=== PATIENT | male | born 2000 | race Two or more races ===

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

== ENCOUNTER 2022-03-15 21:02 | Emergency (ER) | payer MEDICAID ==
[~2022-03-15] VITALS: Ht 175.3 cm; Wt 75.0 kg
[~2022-03-15 21:02] MED LIST: skin cream TP
[2022-03-15 22:29] LABS: BASOPHILS % (AUTO) 0.5 % (0.0-2.0); EOSINOPHILS % (AUTO) 3.1 % (1.0-6.0); HEMATOCRIT 46.1 % (41-53); HEMOGLOBIN 15.9 g/dL (13.5-17.5); LYMPHOCYTES # (AUTO) 1.8 K/uL (1.0-4.8); LYMPHOCYTES % (AUTO) 29.8 % (22.0-44.0); MEAN CORPUSCULAR HEMOGLOBIN 32.8 pg (26.0-34.0); MEAN CORPUSCULAR HGB CONC 34.6 G/dL (31.0-37.0); MEAN CORPUSCULAR VOLUME 95 fL (80-100); MONOCYTES # (AUTO) 0.8 K/uL (0.1-1.0); MONOCYTES % (AUTO) 13.1 % (2.0-9.0); NEUTROPHILS # (AUTO) 3.2 K/uL (1.8-7.7); NEUTROPHILS % (AUTO) 53.5 % (40.0-70.0); PLATELET COUNT (AUTO) 174 K/uL (150-450); RED BLOOD CELL COUNT(AUTO) 4.86 MIL/uL (4.50-5.90); RED CELL DISTRIBUTION WIDTH 13.1 % (11.5-14.5)
[2022-03-15 22:38] LABS: ANION GAP 10 mmol/L (8-16); CALCIUM, TOTAL 9.1 mg/dL (8.8-10.5); CARBON DIOXIDE 29 mmol/L (22-29); CHLORIDE 103 mmol/L (98-107); CREATININE 0.85 mg/dL (0.60-1.30); GLOMERULAR FILTR. RATE CALC > 60 mL/min (>60); GLUCOSE,RANDOM 90 mg/dL (70-110); POTASSIUM 4.2 mmol/L (3.5-5.1); SODIUM SERUM 142 mmol/L (136-145); UREA NITROGEN, BLOOD 7 mg/dL (7-18)
[2022-03-15 22:44] LABS: ALANINE AMINOTRANSFERASE 23 U/L (12-78); ALBUMIN 4.3 g/dL (3.4-5.0); ALKALINE PHOSPHATASE 119 U/L (46-116); ASPARTATE AMINOTRANSFERASE 28 U/L (15-37); BILIRUBIN,TOTAL 0.4 mg/dL (0.1-1.0); TOTAL PROTEIN, SERUM 8.1 g/dL (6.4-8.2)
[2022-03-15 23:00] VITALS: BP 123/77
== END 2022-03-15 23:08 | disposition home or self-care (01) ==
LOC: EMS 21:04
DX: J06.9 Acute upper respiratory infection, unspecified (principal); J40 Bronchitis, not specified as acute or chronic; F10.20 Alcohol dependence, uncomplicated; F12.90 Cannabis use, unspecified, uncomplicated; F15.90 Other stimulant use, unspecified, uncomplicated; F17.210 Nicotine dependence, cigarettes, uncomplicated
CPT/HCPCS: 36415; 71045; 80053; 85025; 99284; G0480

== ENCOUNTER 2022-09-21 19:14 | Emergency (ER) | payer MEDICAID, OTHER ==
[~2022-09-21] VITALS: Ht 180.3 cm; Wt 75.0 kg
[2022-09-21 19:35] VITALS: BP 131/70
[2022-09-21] MEDS ORDERED: METH-659 PO (20:50)
[2022-09-21] MEDS ORDERED: PSEU120T61 PO (20:50)
[2022-09-21] MEDS ORDERED: AMOX1TAB16 PO (20:50)
== END 2022-09-21 21:00 | disposition home or self-care (01) ==
LOC: EMS 19:15
DX: K04.7 Periapical abscess without sinus (principal); J01.20 Acute ethmoidal sinusitis, unspecified; M62.838 Other muscle spasm; F12.90 Cannabis use, unspecified, uncomplicated; F15.10 Other stimulant abuse, uncomplicated; F17.210 Nicotine dependence, cigarettes, uncomplicated
CPT/HCPCS: 99283

== ENCOUNTER 2024-05-01 03:04 | Emergency (ER) | payer OTHER ==
[~2024-05-01] VITALS: Ht 180.3 cm; Wt 70.9 kg
[~2024-05-01 03:04] MED LIST changes: +AMOX-457 PO; +METH-659 PO; +PSEU120T61 PO; -skin cream TP
[2024-05-01 03:14] VITALS: BP 140/77; PULSE 82; RESP 20; TEMP 99.3
[2024-05-01] MEDS: IBUPROFEN 600 MG TABLET PO ONE (03:15)
[2024-05-01] MEDS: ACETAMINOPHEN 500 MG TABLET PO ONE (03:15)
[2024-05-01] MEDS ORDERED: IBUP-1492 PO (05:28)
[2024-05-01] MEDS ORDERED: ACET-3385 PO (05:28)
== END 2024-05-01 05:48 | disposition home or self-care (01) ==
LOC: EMS 03:05
DX: S93.401A Sprain of unspecified ligament of right ankle, initial encounter (principal); F17.210 Nicotine dependence, cigarettes, uncomplicated; F12.90 Cannabis use, unspecified, uncomplicated; F15.10 Other stimulant abuse, uncomplicated; Y04.0XXA Assault by unarmed brawl or fight, initial encounter; Y93.89 Activity, other specified; Y92.89 Other specified places as the place of occurrence of the external cause; Y99.8 Other external cause status
CPT/HCPCS: 99284; 73562-TC; 73590-TC; 73610-TC; 73630-TC; Z7502; Z7610

== ENCOUNTER 2024-09-24 06:21 | Emergency (ER) | payer MEDICAID, OTHER ==
[~2024-09-24] VITALS: Ht 177.8 cm; Wt 75.0 kg
[~2024-09-24 06:21] MED LIST changes: +ACET-3385 PO; +IBUP-1492 PO
[2024-09-24 06:23] VITALS: TEMP 97.8
[2024-09-24] MEDS: IBUPROFEN 400 MG TABLET PO ONE (07:56)
[2024-09-24] MEDS: HYDROCODONE/ACETAMINOPHEN 5-325 MG TABLET PO ONE (07:56)
[2024-09-24] MEDS ORDERED: HYDR-4072 PO (08:21)
[2024-09-24 08:47] VITALS: BP 158/75; PULSE 76; RESP 18; O2SAT 100
== END 2024-09-24 08:52 | disposition home or self-care (01) ==
LOC: EMS 06:23
DX: S69.92XA Unspecified injury of left wrist, hand and finger(s), initial encounter (principal); M79.602 Pain in left arm; M25.521 Pain in right elbow; F17.210 Nicotine dependence, cigarettes, uncomplicated; F12.90 Cannabis use, unspecified, uncomplicated; Y04.8XXA Assault by other bodily force, initial encounter; Y93.K1 Activity, walking an animal; Y92.89 Other specified places as the place of occurrence of the external cause; Y99.8 Other external cause status
CPT/HCPCS: 99284; 73080-TC; 73090-TC; 73110-TC; 73130-TC; Z7502; Z7610